=== PATIENT | male | born 1960 | race Caucasian/White ===

== ENCOUNTER 2018-01-20 11:59 | Outpatient (CLI) | payer MEDICARE, MEDICAID ==
[2018-01-20 19:21] LABS: PSA FREE 0.06 ng/mL (0.16-2.81)
[2018-01-20 19:22] LABS: PSA TOTAL 0.26 ng/mL (0.000-2.000)
== END 2018-01-20 12:00 | disposition home or self-care (01) ==
LOC: LAB.N 11:59
PROVIDERS: ATTEND Family Medicine
DX: R35.0 Frequency of micturition (principal)
CPT/HCPCS: 36415; 84154